=== PATIENT | male | born 1970 | race Caucasian/White ===

== ENCOUNTER 2017-10-21 10:15 | Emergency (ER) | payer OTHER, SELFPAY ==
[2017-10-21 10:16] VITALS: BP 152/103; PULSE 91; RESP 16; O2SAT 98; BMI 27.8
--- NOTE | 2017-10-21 10:18 | NURSING ---
NO OLD EKGS
--- NOTE | 2017-10-21 10:21 | EKG12_ITS ---
Test Reason : CP Blood Pressure : / mmHG Vent. Rate : 092 BPM Atrial Rate : 092 BPM P-R Int : 188 ms QRS Dur : 092 ms QT Int : 360 ms P-R-T Axes : 047 077 038 degrees QTc Int : 445 ms Normal sinus rhythm Normal ECG Confirmed by WING CURRIE MD ([id number]), assistant production editor PATT CORCORAN ([id number]) on 10/23/2017 3:10:57 PM Referred By: AUNDREA Confirmed By:WING CURRIE MD
--- NOTE | 2017-10-21 10:21 | RAD_ITS ---
STUDY: X-RAY CHEST REASON FOR EXAM: Male, 47 years old. Chest pain TECHNIQUE: AP portable view of the chest. COMPARISON: None. FINDINGS: There are monitoring devices. The lungs are clear and expanded. There is no demonstrated pleural abnormality. Normal size heart. Normal mediastinum and sheyla. Normal visualized pulmonary arteries. Normal visualized aortic arch and descending thoracic aorta. Normal visualized thoracic spine. Normal visualized ribs, clavicles, and shoulders. There is no demonstrated abnormality of the visualized soft tissue structures of the upper abdomen. RAD/Chest 1 View (Portable) IMPRESSION: Normal x-ray examination of the chest. Electronically Signed: Nathan Morales MD at 11:10 EDT , Service support ,
[2017-10-21 10:22] VITALS: O2SAT 100
[2017-10-21] MEDS: 0.9% Normal Saline 1,000 ML 150 ML IV (10:25)
[2017-10-21 10:35] LABS: Absolute Lymphocyte Count 1.39 X10^3/ul (0.83-4.51); Basophil# 0.03 X10^3/uL; Basophil% 0.6 % (0-1); Eosinophil# 0.15 X10^3/uL; Hematocrit 43.4 % (40-54); Hemoglobin 14.7 g/dl (13.0-16.5); Lymphocyte # 1.39 X10^3/ul (4.0); Mean Corp Hgb Conc 33.9 g/gl (32-36); Mean Corpuscular Hgb 28.9 pg (27.0-32.0); Mean Corpuscular Volume 85.3 fL (80-94); Mean Platelet Vol. 9.4 fl (6.2-12.0); Monocyte# 0.44 X10^3/uL; Monocyte% 8.9 % (0-10); Neutrophil # 2.95 X10^3/uL (2.7-7.7); Neutrophil % 59.5 % (47-70); Platelet Count 180 K/mm3 (150-450); RBC Distribution Width CV 12.8 % (11.6-14.6); RBC Distribution Width SD 39.9 fl (35.1-43.9); Red Blood Count 5.09 M/mm3 (4.6-6.2)
[2017-10-21 10:36] LABS: POSITIVE COUNT NO; POSITIVE DIFFERENTIAL NO; POSITIVE MORPHOLOGY NO
--- NOTE | 2017-10-21 10:53 | ED.VISSUMM ---
- ER Visit Summary Date of Service: 10/21/17 Chief Complaint: [] Intermittent sharp stabbing left-sided chest pain this morning History of Present Illness: The patient is a 47 M [] reports she woke healthy no complaints he was getting dressed for morning activities we began having pain to the left breast area sharp stabbing lasted for very short period time less than 30 seconds he had no associated symptoms. 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 He has no history of AL PE DVT he denies any risk factors all reviewed with him. He is having no pain now he did take aspirin because of his age and the above pain he came in for evaluation Physical Examination: [] In no distress his vitals are within normal range head neck chest unremarkable the lungs are clear the heart tones are normal he points to the left pectoralis area palpation of this area is unremarkable there is nothing on exam the abdomen soft nontender upper lower extremities skin normal lower extremities reveal no sinus clubbing or edema he is resting comfortably bed his pulses are symmetric bilaterally and again he is asymptomatic Test Results: [] Emergency Department Course and Treatment: [] His EKG shows a sinus rhythm nothing acute screening labs are obtained\ Lab studies chest x-ray are unremarkable see those reports, on reevaluation is resting company remains asymptomatic Plan test results to him I explained he would require more definitive management such as stress echo we discussed admission options, he declined admission stating he felt fine he wants to go home and preferred be managed as an outpatient, he did not wish to have any other tests done to the emergency department, he will take 2 baby aspirin a day follow-up with physicians to obtain a stress echo and return for change in symptoms again is comfortable with this plan and he understands the concept of occult cardiac disease and sudden but again declined admission Treatment Plan: [] Disposition: [] Home stable declined admission Impression: [] Sharp stabbing left-sided chest pain etiology unclear This note was generated with [employer]isu dictation software. It may contain incorrect words, spelling, and punctuation that were not noted in review of the chart prior to signing ED Disposition - Plan for ED Patient: Chief Complaint: Chest Pain Referrals: Ze Browning III, MD [Primary Care Provider] -
[2017-10-21 10:57] LABS: Anion Gap 9 (5-15); BUN 18 mg/dL (7-18); BUN/Creat Ratio 16.7 RATIO (10-20); Calcium,Total 8.7 mg/dL (8.5-10.1); Chloride 105 mmol/L (98-107); Creatinine, Serum 1.08 mg/dL (0.70-1.30); EST Glomerular Filtration Rate 78 mL/min (>60); Est Glom Filt Rate - Afr Amer 94 mL/min (>60); Estimated Creatinine Clearance 106.56 ml/min; Glucose 92 mg/dL (74-106); Potassium 3.4 mmol/L (3.5-5.1); Sodium Level 143 mmol/L (136-145)
[2017-10-21 11:23] VITALS: BP 145/92; PULSE 80; RESP 14; O2SAT 98
--- NOTE | 2017-10-21 11:53 | ED.DEP ---
ED Disposition - Plan for ED Patient: Chief Complaint: Chest Pain Instructions: ED Chest Pain Atypical Unkn Cause Referrals: Ze Browning III, MD [Primary Care Provider] -
[2017-10-21 12:23] VITALS: BP 135/80; PULSE 80; RESP 14; O2SAT 100
== END 2017-10-21 12:24 | disposition home or self-care (01) ==
PROVIDERS: Emergency Provider Emergency Medicine; Family Provider Family Medicine; PCP Family Medicine
DX: R07.9 Chest pain, unspecified (principal)
CPT/HCPCS: 71045; 80048; 84484; 85025; 93005; 96360; 96361; 99284; J7030; A4216

== ENCOUNTER 2024-01-29 07:13 | Emergency (ER) | payer BC, SELFPAY ==
[2024-01-29 07:13] VITALS: BP 143/88; PULSE 82; RESP 16; TEMP 36.7; O2SAT 99; BMI 27.2
[2024-01-29 07:18] VITALS: O2SAT 98
--- NOTE | 2024-01-29 07:18 | EKG12_ITS ---
Test Reason : CHEST DISCOMFORT Blood Pressure : / mmHG Vent. Rate : 073 BPM Atrial Rate : 073 BPM P-R Int : 206 ms QRS Dur : 090 ms QT Int : 384 ms P-R-T Axes : 043 046 025 degrees QTc Int : 423 ms Normal sinus rhythm Normal ECG Confirmed by Armani Mcmillan ([id number]), book editor AMIE LEVINE ([id number]) on 01/30/2024 11:40:31 AM Referred By: Confirmed By:Armani Mcmillan
--- NOTE | 2024-01-29 07:25 | ED.VIS.CHEST ---
HPI History of Present Illness Chief Complaint: Chest Pain Narrative Narrative: 53-year-old male presenting for evaluation of slight shortness of breath and mild chest discomfort. He states it feels like he cannot quite take a full breath and when he does he has some aching across his chest. It is not sharp. Patient noticed he had this about a week ago which resolved and states he is fairly active. He plays pickle ball every weekend for the last 4 weeks and does elliptical. He does not note any chest pain or shortness of breath with this activity. Last night he noted the symptoms felt like it came on about 9 and he states he has not been able to stop thinking about whether this is something serious or not. He is denies cough, fever, chills. Denies any trauma to the chest. He does not like his muscles are sore from pickleball and he also states he was lifting some wood yesterday. No history of DVT/PE risk factors. No cardiac or pulmonary history. PFSH PFSH Home Medications ?Medication ?Instructions ?Recorded ?Last Taken ?Type multivitamin (Daily Multi-Vitamin 1 tab PO DAILY 01/29/24 Unknown History tablet) Allergy/AdvReac Type Severity Reaction Status Date / Time No Known Allergies Allergy Verified 01/29/24 07:22 Surgical History Hx of tonsillectomy Social History Smoking Status: Never smoker ROS [facility] ED Constitutional Constitutional ED: Denies chills, fever(s) or sweats Eyes Eyes: Denies blurry vision or change in vision ENT ENT ED: Denies ear pain or sore throat Cardiovascular Cardiovascular: Reports chest pain; Denies palpitations or racing heartbeat Respiratory/Chest Respiratory/Chest: Reports dyspnea; Denies cough or sputum Gastrointestinal Gastrointestinal: Denies abdominal pain, constipation, diarrhea, nausea or vomiting Genitourinary Genitourinary ED: Denies dysuria, hematuria or urinary frequency Musculoskeletal Musculoskeletal: Denies arthralgias, myalgias or neck pain Integumentary Denies abscess, Abrasions or rash Neurologic Neurologic: Denies headache(s), paresthesias or weakness Psychiatric Psychiatric: Denies anxiety, depression, suicidal ideation or suicidal thoughts Endocrine Endocrinology: Denies polydipsia or polyuria EXAM Physical Exam Const Vital Signs: 01/29/24 07:13 01/29/24 07:18 01/29/24 07:21 Temperature 98.1 F Temperature Source Oral Pulse Rate 82 Respiratory Rate 16 Respiratory Effort Normal Non-Labored Respiratory Pattern Normal Blood Pressure 143/88 H Blood Pressure Mean 106 Pulse Ox 99 98 Oxygen Delivery Method Room Air Room Air 01/29/24 08:13 01/29/24 09:00 01/29/24 09:57 Temperature 97.6 F L Temperature Source Pulse Rate 79 78 82 Respiratory Rate 18 18 18 Respiratory Effort Respiratory Pattern Blood Pressure 139/85 H 141/90 H 141/90 H Blood Pressure Mean 103 107 107 Pulse Ox 98 98 98 Oxygen Delivery Method Room Air Room Air Positive well nourished and well developed General Appearance ED: well developed HEENT Reports moist mucous membranes normocephalic Chest Wall Chest Narrative: Mild tenderness to palpation of the sternum.. Equal symmetric breath sounds and chest wall rise. Resp normal respiratory effort and clear to auscultation bilaterally Auscultation: Negative for rales, rhonchi or wheezes Cardio regular rate and regular rhythm Extremity normal to inspection Neuro oriented x3 and CN's II-XII intact bilaterally Sensorium / Orientation: awake and alert Motor Exam: strength 5/5 throughout Psych mental status grossly normal Skin no rashes or lesions noted MDM MDM MDM Narrative Medical decision making narrative: Patient presenting with mild chest discomfort and shortness of breath which really feels like he is a deep breath. No history of cardiac or pulmonary disease. Differential includes but is not limited to ACS, PE, pneumonia, pneumothorax, muscle strain, costochondritis. CBC will be obtained to assess white blood cell count, hemoglobin, platelets. BMP to assess renal function, electrolytes, glucose. High-sensitivity troponin and EKG to assess for ischemia/dysrhythmia. Chest x-ray to rule out pneumonia or CHF. Patient is PERC negative. CBC shows normal white blood cell count of 4.7. Hemoglobin 13. Platelets normal at 192. Renal function and electrolytes within normal limits. High-sensitivity troponin is 3. EKG interpreted by myself shows a sinus rhythm at 73 bpm without sign of ischemic change or ectopy. Chest x-ray, interpretation shows no acute process. Radiology interpretation agrees. I do not believe the patient needs a delta troponin since having symptoms since yesterday. I recommend follow-up with his PCP and return precautions were discussed. Impression: 1. Dyspnea 2. chest pain Lab Data Attestation: I reviewed the patient's lab results. Labs: Laboratory Results - last 24 hr 01/29/24 07:33 WBC 4.7 RBC 4.50 L Hgb 13.0 Hct 38.7 L MCV 86.0 MCH 28.9 MCHC 33.6 RDW Std Deviation 38.8 RDW Coeff of Siri 12.4 Plt Count 192 MPV 10.3 Immature Gran % (Auto) 0.000 Neut % (Auto) 56.7 Lymph % (Auto) 28.5 Jack % (Auto) 9.6 Eos % (Auto) 4.1 Baso % (Auto) 1.1 H Absolute Neuts (auto) 2.7 Absolute Lymphs (auto) 1.33 Nucleated RBC % 0 Sodium 138 Potassium 3.5 Chloride 107 Carbon Dioxide 28.0 Anion Gap 3 L BUN 19 H Creatinine 1.15 Estim Creat Clear Calc 93.62 Est GFR (MDRD) Af Amer 85 Est GFR (MDRD) Non-Af 71 BUN/Creatinine Ratio 16.5 Glucose 90 Calcium 9.1 Troponin I High Sens 3 Radiography Diagnostic Testing: Clinical Impression(s) from Imaging Studies Chest X-Ray 01/29/24 08:05 IMPRESSION: Normal x-ray examination of the chest. Electronically Signed: John Melton MD at 8:31 EDT , Discharge Plan Triage Chief Complaint: Chest Pain ED Provider: Joseph Crowley Dx/Rx/DC Orders Instructions: ED Chest Pain, Noncardiac, ED Dyspnea Prescriptions: No Action multivitamin [Daily Multi-Vitamin] Tablet 1 tab PO DAILY Primary Care Provider: Percy Sinha Referrals: Percy Sinha MD [Primary Care Provider] - Print Language: Kazakh Disposition Disposition: Home, Self Care Discharge Date/Time: 01/29/24 10:01
[2024-01-29] MEDS: Aspirin 81 MG TAB.CHEW 324 MG PO (07:31)
--- NOTE | 2024-01-29 08:05 | RAD_ITS ---
STUDY: X-RAY CHEST REASON FOR EXAM: Male, 53 years old. Chest pain TECHNIQUE: Single AP portable view of the chest. COMPARISON: Comparison is made with prior study dated October 21, 2017. FINDINGS: EKG electrodes are seen. The lungs are clear and expanded. There is no demonstrated pleural abnormality. Normal size heart. Normal mediastinum and sheyla. Normal visualized pulmonary arteries. Normal visualized aortic arch and descending thoracic aorta. Normal visualized thoracic spine. Normal visualized ribs, clavicles, and shoulders. There is no demonstrated abnormality of the visualized soft tissue structures of the upper abdomen. RAD/Chest 1 View (Portable) IMPRESSION: Normal x-ray examination of the chest. Electronically Signed: John Melton MD at 8:31 EDT ,
[2024-01-29 08:13] VITALS: BP 139/85; PULSE 79; RESP 18; O2SAT 98
[2024-01-29 08:19] LABS: Absolute Lymphocyte Count 1.33 X10^3/uL (0.83-4.51); Absolute Neutrophil Count 2.7 X10^3/uL (2.0-7.7); Basophil# 0.05 X10^3/uL; Basophil% 1.1 % (0-1); Eosinophil# 0.19 X10^3/uL; Eosinophils% 4.1 % (0-5); Hematocrit 38.7 % (40-54); Lymphocyte # 1.33 X10^3/ul (0.83-4.51); Lymphocyte % 28.5 % (19-41); Mean Corp Hgb Conc 33.6 g/dL (32-36); Mean Corpuscular Hgb 28.9 pg (27.0-32.0); Mean Platelet Vol. 10.3 fl (6.2-12.0); Monocyte# 0.45 X10^3/uL; Monocyte% 9.6 % (0-10); NRBC Flagged by Analyzer 0 % (0-5); Neutrophil # 2.65 X10^3/uL (2.7-7.7); Neutrophil % 56.7 % (47-70); Platelet Count 192 K/mm3 (150-450); RBC Distribution Width CV 12.4 % (11.6-14.6); RBC Distribution Width SD 38.8 fl (35.1-43.9); White Blood Count 4.7 K/mm3 (4.4-11.0)
[2024-01-29 08:27] LABS: Anion Gap 3 (5-15); BUN 19 mg/dL (7-18); BUN/Creat Ratio 16.5 RATIO (10-20); Calcium,Total 9.1 mg/dL (8.5-10.1); Chloride 107 mmol/L (98-107); Creatinine, Serum 1.15 mg/dL (0.70-1.30); EST Glomerular Filtration Rate 71 mL/min (>60); Est Glom Filt Rate - Afr Amer 85 mL/min (>60); Estimated Creatinine Clearance 93.62 ml/min; Glucose 90 mg/dL (74-106); Potassium 3.5 mmol/L (3.5-5.1); Sodium Level 138 mmol/L (136-145); Troponin-I HS 3 pg/mL (3.0-78.0)
[2024-01-29 09:00] VITALS: BP 141/90; PULSE 78; RESP 18; O2SAT 98
[2024-01-29 09:57] VITALS: BP 141/90; PULSE 82; RESP 18; TEMP 36.4; O2SAT 98
== END 2024-01-29 10:01 | disposition home or self-care (01) ==
PROVIDERS: Emergency Provider Student in an Organized Health Care Education/Training Program; PCP Family Medicine; Visit Provider Student in an Organized Health Care Education/Training Program
DX: R07.9 Chest pain, unspecified (principal); R06.00 Dyspnea, unspecified
CPT/HCPCS: 71045; 80048; 84484; 85025; 93005; 99283; A4216